=== PATIENT | female | born 1990 | race Asian ===

== ENCOUNTER → 2023-12-19 10:18 | Outpatient (REF) | payer OTHER, SELFPAY ==
[2023-12-21 11:11] LABS: Quantiferon Mitogen minus NIL >10.00 IU/mL; Quantiferon NIL 0.04 IU/mL; Quantiferon Plus TB1 minus NIL 0.02 IU/mL (0.00-0.34); Quantiferon Plus TB2 minus NIL 0.04 IU/mL (0.00-0.34); Quantiferon TB Gold Plus Negative (Negative)
== END ==
LOC: OHS 10:18
PROVIDERS: ATTENDING PHYSICIAN Nurse Practitioner Family
DX: Z23 Encounter for immunization (principal)
CPT/HCPCS: 36415; 86480

== ENCOUNTER → 2025-06-13 07:20 | Outpatient (REF) | payer OTHER, SELFPAY ==
[2025-06-13 10:44] LABS: Blood Urea Nitrogen 14 mg/dl (7-17); Calcium 9.5 mg/dl (8.4-10.2); Carbon Dioxide 27 mmol/L (22-30); Chloride 103 mmol/L (98-107); Glucose 102 mg/dl (70-99); Potassium 4.7 mmol/L (3.5-5.1); Sodium 135 mmol/L (135-145); eGFR > 60.00
== END ==
LOC: REG 07:20
PROVIDERS: ATTENDING PHYSICIAN Surgery Vascular Surgery; FAMILY PHYSICIAN Family Medicine
DX: I87.2 Venous insufficiency (chronic) (peripheral) (principal); Z01.818 Encounter for other preprocedural examination
CPT/HCPCS: 36415; 80048; 93970

== ENCOUNTER → 2025-06-17 09:05 | Outpatient (REF) | payer OTHER, SELFPAY | LOC: RAD 09:05 | PROVIDERS: ATTENDING PHYSICIAN Surgery Vascular Surgery; FAMILY PHYSICIAN Family Medicine | DX: I87.1 Compression of vein (principal) | CPT/HCPCS: 74174; Q9967 ==